=== PATIENT | male | born 1970 | race Caucasian/White ===

== ENCOUNTER 2021-05-08 18:31 | Emergency (ER) | payer OTHER ==
[~2021-05-08] VITALS: Ht 182.9 cm; Wt 104.4 kg
[2021-05-08] MEDS ORDERED: LEXAPRO20 MG PO (18:52)
[2021-05-08] MEDS ORDERED: ABILIFY10 MG PO (18:53)
[2021-05-08] MEDS ORDERED: VITAMIN D3250 MC2 PO (18:54)
[2021-05-08] MEDS ORDERED: BACTRIM DS TAB1 EACH PO (19:26)
[2021-05-08] MEDS ORDERED: CEPHALEXIN500 MG PO (19:26)
[2021-05-08] MEDS ORDERED: HYDROCODON-ACE1 EA10 PO (19:26)
== END 2021-05-08 19:39 | disposition home or self-care (01) ==
LOC: ED 18:31
DX: L03.011 Cellulitis of right finger (principal); Z79.899 Other long term (current) drug therapy
CPT/HCPCS: 10060; 99283-25